=== PATIENT | female | born 1955 | race Caucasian/White ===

== ENCOUNTER 2016-09-15 23:53 | Emergency (ER) | payer BC ==
--- NOTE | 2016-09-16 00:19 | ER Document Report ---
ED General - General Chief Complaint: Arm Injury Stated Complaint: RIGHT ARM INJURY,RIGHT THIGH BURN Notes: Patient is a 61-year-old female presents with complaints of a fall. When she fell, she landed on her right elbow and now has deformity to right elbow. First degree burn on the right thigh. She has mild pain to right shoulder. She denies headache. She denies neck pain. She denies any other injuries. She has no other complaints at this time. TRAVEL OUTSIDE OF THE [place] IN LAST 30 DAYS: No - Related Data Allergies/Adverse Reactions: No Known Allergies Allergy (Unverified 11/21/11 15:55) Past Medical History - Social History Smoking Status: Never Smoker Frequency of alcohol use: None Drug Abuse: None Family History: Reviewed & Not Pertinent - Past Medical History Cardiac Medical History: Denies: Hx Coronary Artery Disease, Hx Heart Attack, Hx Hypertension, Hx Pulmonary Embolism Pulmonary Medical History: Reports: Hx Bronchitis, Hx COPD, Hx Pneumonia Denies: Hx Asthma, Hx Respiratory Failure, Hx Sleep Apnea, Hx Tuberculosis Neurological Medical History: Denies: Hx Cerebrovascular Accident, Hx Seizures Endocrine Medical History: Reports: Hx Hypothyroidism. Denies: Hx Graves' Disease, Hx Hyperthyroidism Malignancy Medical History: Denies: Hx Lung Cancer GI Medical History: Reports: Hx Gastroesophageal Reflux Disease. Denies: Hx Crohn's Disease, Hx Hiatal Hernia, Hx Irritable Bowel, Hx Liver Failure, Hx Ulcer Musculoskeltal Medical History: Reports Hx Arthritis - knees Past Surgical History: Reports: Hx Appendectomy. Denies: Hx Bowel Surgery, Hx Section, Hx Cholecystectomy, Hx Colostomy, Hx Coronary Artery Bypass Graft, Hx Gastric Bypass Surgery, Hx Herniorrhaphy, Hx Hysterectomy, Hx Mastectomy, Hx Pacemaker, Hx Tonsillectomy, Hx Tubal Ligation - Immunizations Hx Diphtheria, Pertussis, Tetanus Vaccination: No Hx Pneumococcal Vaccination: 11/21/11 Review of Systems - Review of Systems Notes: My Normal Review Basic REVIEW OF SYSTEMS: CONSTITUTIONAL : Denies fever, chills, or sweats. Denies recent illness. EENT: Denies eye, ear, throat, or mouth pain or symptoms. Denies nasal or sinus congestion. RESPIRATORY: Denies cough, cold, or chest congestion. Denies shortness of breath, difficulty breathing, or wheezing. GASTROINTESTINAL: Denies abdominal pain. Denies nausea, vomiting, or diarrhea. Denies constipation. Last BM: MUSCULOSKELETAL: Denies neck or back pain or joint pain or swelling. SKIN: Denies rash or skin lesions. NEUROLOGICAL: Denies altered mental status or loss of consciousness. Denies headache. Denies weakness or paralysis or loss of use of either side. Denies problems with gait or speech. Denies sensory or motor loss. ALL OTHER SYSTEMS REVIEWED AND NEGATIVE. Physical Exam - Vital signs Vitals: Temp Pulse Resp BP Pulse Ox 98.0 F 68 20 127/63 H 94 09/16/16 00:05 09/16/16 00:05 09/16/16 00:05 09/16/16 00:05 09/16/16 00:05 - Notes Notes: General Appearance: Well nourished, alert, cooperative, no acute distress, mild to moderate obvious discomfort. Vitals: reviewed, See vital signs table. Head: no swelling or tenderness to the head Eyes: PERRL, EOMI, Conjuctiva clear Mouth: No decreasd moisture Neck: Supple, no neck tenderness, No thyromegaly Lungs: No wheezing, No rales, No rhonci, No accessory muscle use, good air exchange bilaterally. Heart: Normal rate, Regular rythm, No murmur, no rub Abdomen: No abdominal pain palpation. Extremities: strength 5/5 in all extremities, good pulses in all extremities, office for which right elbow which clinically appears consistent with a elbow dislocation. X-rays pending. Mild pain to palpation of the right shoulder. Distal pulses intact. Patient is able to move all fingers without difficulty. Distal sensation intact in the right hand., no edema. Skin: First-degree burn over the right medial thigh. Burn is only to the medial thigh. Is not circumferential. Neuro: speech clear, oriented x 3, normal affect, responds appropriately to questions. Course - Vital Signs Vital signs: Temp Pulse Resp BP Pulse Ox 98.0 F 72 20 125/67 99 09/16/16 00:05 09/16/16 02:54 09/16/16 02:54 09/16/16 02:54 09/16/16 02:54 - Transfer of Care Notes: 09/16/16 05:29 I was able to sedate the patient without complications in order to perform the dislocation reduction of the elbow. Patient is a radial head fracture. I will place patient in the posterior arm splint. We did place her in a sling. She will follow-up with orthopedics. I encourage return to ER shows worsening pain , increased swelling, or feels unwell. I did talk to her about splint for cautions and talked about the signs went to loosen the Kristian wrap under splint. Patient agrees with plan and will be discharged home. Dictation of this chart was performed using voice recognition software; therefore, there may be some unintended grammatical errors. Procedures - Conscious Sedation Conscious sedation Consent obtained: Yes Indication: dislocation reduciton Prior complications: Procedural sedation Pt with a mild systemic disease.: P2. - ASA Classification. Airway Evaluation: Normal anatomy Mallampati Classification: Class 1 Used during procedure: Suction available, IV access obtained, Pulse ox on pt., media monitor on pt. Medications administered: Diprivan I personally performed/intraservice time: Sedation, Procedure, 30 min or less Complications: No Notes: Patient was given a total of 50mg of Propofol. - Immobilization Right Elbow Pre-Proc Neuro Vasc Exam: Normal Immobilizer type: Long arm posterior Performed by: PCT Post-Proc Neuro Vasc Exam: Normal - Joint Reduction/Fracture Care Right Elbow Consent obtained: Yes Conscious sedation: Yes Pre-procedure NV exam: Yes Fracture: Closed Manipulation comment: traction with flexion of elbow Post-procedure NV exam: Yes Post-reduction x-ray: Joint reduced Reduction attempts: 1 Complications: No Discharge - Discharge Clinical Impression: Elbow dislocation Qualifiers: Encounter type: initial encounter Laterality: right Qualified Code(s): S53.104A - Unspecified dislocation of right ulnohumeral joint, initial encounter Radial head fracture, closed Qualifiers: Encounter type: initial encounter Fracture alignment: displaced Laterality: right Qualified Code(s): S52.121A - Displaced fracture of head of right radius, initial encounter for closed fracture Condition: Good Disposition: HOME, SELF-CARE Instructions: Oral Narcotic Medication ([facility]) Additional Instructions: Splitn Precautions A splint has been placed. This will protect the area while healing begins. Your problem does NOT normally require a cast. It MUST, however, be held still! Keep the splint on ALL THE TIME until instructed to remove it by the doctor. As you begin to use the area, be careful. You shouldn't do anything which causes discomfort -- you may disturb the injury even with the splint in place. After the initial period of rest and elevation, if splint does not prevent pain when you move, come back. You may require placement of a different splint , or a cast. If there is unexpected severe pain, or numbness, discoloration, or swelling beyond the splint, you should return at once. If you feel that the splint has broken or become loose, come back. Please call the orthopedic office in the morning to make a close follow-up appointment. Phone number for the orthopedic office is under the name "Dr. Merrill" in your discharge paperwork. Please return to ER immediately if you're having worsening pain, numbness in your hand, or feel unwell. Please loosen the Kristian wrap on your splint if you feel that you're developing some numbness or tingling in your hand or arm. Prescriptions: Hydrocodone/Acetaminophen [Lincoln 5-325 mg Tablet] 1 tab PO Q4 PRN #20 tablet PRN Reason: For Breakthrough Pain Referrals: AMADOU ANTHONY MD [Primary Care Provider] - Follow up as needed KRISTIAN MERRILL MD [ACTIVE STAFF] - Follow up in 3-5 days
[2016-09-16] MEDS ORDERED: PROPOFOL INJ 200 MG/20 ML VIAL IV ONE (01:04)
[2016-09-16] MEDS ORDERED: NORMAL SALINE 1000 ML 1,000 ML IV ONE (01:05)
[2016-09-16] MEDS ORDERED: FENTANYL CITRATE INJ/PF 100 MCG/2 ML AMPUL IV ONE (01:09)
[2016-09-16] MEDS ORDERED: HYDROCODONE/ACETAMINOPHEN 5-325 MG 6 TAB/DSPK PO PRN (05:40)
[2016-09-16 05:50] VITALS: BP 112/75
== END 2016-09-16 05:51 | disposition home or self-care (01) ==
LOC: ER 23:53
PROC: 0RSLXZZ Reposition Right Elbow Joint, External Approach (ICD-10-PCS; principal; 2016-09-15)
DX: S53.104A Unspecified dislocation of right ulnohumeral joint, initial encounter (principal); S52.121A Displaced fracture of head of right radius, initial encounter for closed fracture; W01.198A Fall on same level from slipping, tripping and stumbling with subsequent striking against other object, initial encounter; Y92.009 Unspecified place in unspecified non-institutional (private) residence as the place of occurrence of the external cause; T24.111A Burn of first degree of right thigh, initial encounter; J44.9 Chronic obstructive pulmonary disease, unspecified; E03.9 Hypothyroidism, unspecified
CPT/HCPCS: 99284; 96360; 73070; 73030; 73200; 24600; J3010; J7030; J2704

== ENCOUNTER 2016-09-18 08:26 | Day surgery (SDC) | payer BC ==
[~2016-09-18 08:26] MED LIST: CEFAZOLIN 2 GM/D5W RTU 2 GM/50 ML RTUPB IV PRN
[2016-09-18 09:19] LABS: APPEARANCE,URINE SLIGHTLY-CLOUDY; BILIRUBIN,URINE NEGATIVE (NEGATIVE); GLUCOSE, URINE NEGATIVE (NEGATIVE); KETONES,URINE NEGATIVE (NEGATIVE); LEUKOCYTE ESTERASE,URINE SMALL (NEGATIVE); NITRITE,URINE NEGATIVE (NEGATIVE); PROTEIN,URINE NEGATIVE (NEGATIVE); URINE SPECIFIC GRAVITY 1.016; UROBILINOGEN,URINE NEGATIVE mg/dL (<2.0)
[2016-09-18 09:41] LABS: HEMATOCRIT 45.7 % (36.0-47.0); HEMOGLOBIN 15.1 g/dL (12.0-15.5); HGB HCT DIFFERENCE -0.4; MEAN CORPUSCULAR HEMOGLOBIN 30.7 pg (27.0-33.4); MEAN CORPUSCULAR VOLUME 93 fl (80-97); RED BLOOD COUNT 4.91 10^6/uL (3.72-5.28); RED CELL DISTRIBUTION WIDTH 14.4 % (11.5-14.0); WHITE BLOOD COUNT 10.8 10^3/uL (4.0-10.5)
[2016-09-18 10:08] LABS: ANION GAP 10 (5-19); BLOOD UREA NITROGEN 13 mg/dL (7-20); CALCIUM 9.4 mg/dL (8.4-10.2); CARBON DIOXIDE 27 mmol/L (22-30); CHLORIDE 103 mmol/L (98-107); CREATININE RESULT 0.87 mg/dL (0.52-1.25); GLUCOSE 91 mg/dL (75-110); POTASSIUM 4.2 mmol/L (3.6-5.0); SODIUM 140.1 mmol/L (137-145)
[2016-09-18] MEDS ORDERED: METOCLOPRAMIDE HCL INJ/PF 10 MG/2 ML SDV ONE (10:19)
[2016-09-18] MEDS ORDERED: DEXAMETHASONE SOD PHOSPHATE INJ 4 MG/1 ML VIAL ONE (10:19)
[2016-09-18] MEDS ORDERED: ONDANSETRON HCL INJ/PF 4 MG/2 ML SDV ONE (10:19)
[2016-09-18] MEDS ORDERED: LIDOCAINE 2% INJ-PF (20 MG/ML) 10 ML AMPUL ONE (10:19)
[2016-09-18] MEDS ORDERED: GLYCOPYRROLATE INJ 0.4 MG/2 ML VIAL ONE (10:19)
[2016-09-18] MEDS ORDERED: SUCCINYLCHOLINE CHLORIDE INJ 200 MG/10 ML VIAL ONE (10:19)
[2016-09-18] MEDS ORDERED: MIDAZOLAM 2 MG/2 ML INJ ONE (11:51)
[2016-09-18] MEDS ORDERED: FENTANYL CITRATE INJ/PF 250 MCG/5 ML AMPULE ONE (11:51)
[2016-09-18] MEDS ORDERED: PROPOFOL INJ 200 MG/20 ML VIAL IV ONE (11:52)
[2016-09-18] MEDS ORDERED: BUPIVACAINE HCL 0.25 % INJ/PF (2.5 MG/1 ML) 30 ML VIAL ONE (12:37)
--- NOTE | 2016-09-18 12:56 | EKG REPORT ---
SEVERITY:- BORDERLINE ECG - SINUS RHYTHM BORDERLINE T ABNORMALITIES, ANT-LAT LEADS : Confirmed by: Ammy Rodriguez MD 18-Sep-2016 12:55:08
[2016-09-18] MEDS ORDERED: EPHEDRINE SULFATE INJ 50 MG/1 ML AMPULE ONE (13:05)
[2016-09-18] MEDS ORDERED: ONDANSETRON HCL INJ/PF 4 MG/2 ML SDV IV PRN (13:17)
[2016-09-18] MEDS ORDERED: PROMETHAZINE HCL INJ 25 MG/1 ML VIAL IV PRN ×2 (13:17)
[2016-09-18] MEDS ORDERED: MEPERIDINE HCL/PF INJ 25 MG/1 ML DISP.SYRIN IV PRN (13:17)
[2016-09-18] MEDS ORDERED: OXYCODONE-ACETAMINOPHEN 5-325 MG TABLET PO PRN ×4 (13:17→15:39)
[2016-09-18] MEDS ORDERED: FENTANYL CITRATE INJ/PF 100 MCG/2 ML AMPUL IV PRN ×3 (13:17)
[2016-09-18] MEDS ORDERED: MORPHINE SULFATE 10 MG/ML INJ IV PRN (13:17)
[2016-09-18] MEDS ORDERED: DIPHENHYDRAMINE HCL 50 MG/ML VIAL IV PRN (13:17)
[2016-09-18] MEDS ORDERED: DEXMEDETOMIDINE INJ 80 MCG/20 ML VIAL IV ONE (14:25)
[2016-09-18] MEDS: FENTANYL CITRATE INJ/PF 100 MCG/2 ML AMPUL ONE ×2 (14:42→14:47)
--- NOTE | 2016-09-18 15:09 | PDOC DISCHARGE SUMMARY ---
Discharge Summary (SDC) - Discharge Final Diagnosis: ORIF of the right radial head fracture Date of Surgery: 09/18/16 Discharge Date: 09/18/16 Condition: Good Treatment or Instructions: Keep splint dry clean and intact. Sling to right upper extremity. Nonweightbearing right upper extremity. Follow-up in 2 weeks in the office. Prescriptions: Oxycodone HCl/Acetaminophen [Percocet 5-325 mg Tablet] 1 - 2 tab PO ASDIR PRN # 60 tablet PRN Reason:
[2016-09-18 16:40] VITALS: BP 137/71
--- NOTE | 2016-10-23 15:19 | Operative Report ---
Operative Report DATE OF SURGERY: 09/18/16 PREOPERATIVE DIAGNOSIS: Right radial head fracture status post elbow dislocation POSTOPERATIVE DIAGNOSIS: Same OPERATION: ORIF of right radial head fracture, closed treatment of elbow dislocation SURGEON: ADRIANE TOBIN ANESTHESIA: GA TISSUE REMOVED OR ALTERED: None COMPLICATIONS: None ESTIMATED BLOOD LOSS: 10 mL PROCEDURE: Patient received 2 g of Ancef in the preop holding area. The right upper extremity was marked has a correct site. Patient was brought to the operating room and successfully induced and intubated in the supine position. Once the tube was secured the splint was removed and right upper extremity was prepped and draped in a normal sterile surgical fashion. A sterile tourniquet was applied to the right upper arm. Esmarch was used to secondary to extremity and tourniquet was inflated at 250 mmHg. Standard lateral approach to the radiocapitellar joint was done. Skin knife was used to do the initial cut with then scissors were used to expose the fascial tissue over the common extensor. I was able to see the muscle fibers and split the muscle fibers exposing the lateral elbow joint. This was incised longitudinally as well. I was quickly able to expose the radiocapitellar joint and see the fractured radial head. Of note the arm was a pronation at this point to protect the PIN nerve. I was able to reduce the radial head fracture and placed 2 threaded guide pins. C- arm pictures was taken to confirm proper placement and length without involving the proximal radial ulnar joint. I measured and took 2 mm off psychic countersink my to have the screws. I was able to secure them manually and then take pictures confirming my reduction and fixation. I pronated and supinated the arm showing no clicking or clunking of the proximal radio ulnar joint. I did reduce the elbow one more time and then proceeded to close the capsule and muscle layer with 0 Vicryl. We approximated the 17th tissue with 2-0 Vicryl and used gregory for skin. Patient then was covered with Xeroform 4 x 4 dressing and then overwrapped with Sof-Rol. A 4 inch Ortho-Glass was used and 2 splint the upper extremity in a pronated position. C-arm pictures were taking showing reduced the elbow after splint had hardened. At this point the drapes were cut and removed and the tourniquet was deflated and the patient successfully extubated and transferred to PACU in stable condition.
== END 2016-09-18 17:05 | disposition home or self-care (01) ==
LOC: OROUT 08:26
PROVIDERS: ATTEND Orthopaedic Surgery
PROC: 0RSLXZZ Reposition Right Elbow Joint, External Approach (ICD-10-PCS; 2016-09-18)
PROC: 0PSH04Z Reposition Right Radius with Internal Fixation Device, Open Approach (ICD-10-PCS; principal; 2016-09-18 12:30)
DX: S52.121A Displaced fracture of head of right radius, initial encounter for closed fracture (principal); S53.104A Unspecified dislocation of right ulnohumeral joint, initial encounter; X58.XXXA Exposure to other specified factors, initial encounter; F17.210 Nicotine dependence, cigarettes, uncomplicated; E03.9 Hypothyroidism, unspecified; E66.3 Overweight; Z79.899 Other long term (current) drug therapy; Z68.36 Body mass index [BMI] 36.0-36.9, adult
CPT/HCPCS: 36415; 85027; 80048; 81001; 71010; 73070; 93005; 93010; 24665; 24605; J2250; J1100; J3490 ×3; J3010 ×2; J2765; J0330; J2405; J2704; J0690; 01740

== ENCOUNTER → 2018-11-19 | Outpatient (CLI) | payer BC ==
--- NOTE | 2018-11-23 08:42 | WOMENS IMAGING REPORT ---
EXAM DESCRIPTION: 3D SCREENING MAMMO BILAT COMPLETED DATE/TIME: 11/19/2018 3:44 pm REASON FOR STUDY: Z12.31 SCREENING MAMMO Z12.31 ENCNTR SCREEN MAMMOGRAM FOR MALIGNANT NEOPLASM OF B RE COMPARISON: 07/16/2016 and 05/10/2015. TECHNIQUE: Standard craniocaudal and mediolateral oblique views of each breast recorded using digita l acquisition and breast tomosynthesis. LIMITATIONS: None. FINDINGS: No masses, calcifications or architectural distortion. No areas of suspicion. Read with the assistance of CAD. .[facility] - R2 Cenova Version 1.3 .[facility] Imaging - R2 Cenova Version 2.1 .[facility] - R2 Cenova Version 2.4 .[facility] [place] R2 Cenova Version 2.4 .[facility] - R2 [employer] Version 9.2 IMPRESSION: NORMAL MAMMOGRAM. BIRADS 1. BREAST DENSITY: b. There are scattered areas of fibroglandular density. BIRAD: 1 NEGATIVE RECOMMENDATION: ROUTINE SCREENING COMMENT: The patient has been notified of the results by letter per SA requirements. Additional no tification policies are in place for contacting patient with suspicious or incomplete findings. Quality ID #225: The [employer] recommends an annual screening mammogram for women aged 40 years or over. This facility utilizes a reminder system to ensure that all patients receive reminder letters, and/or direct phone calls for appointments. This includes reminders for routine scr eening mammograms, diagnostic mammograms, or other Breast Imaging Interventions when appropriate. Th is patient will be placed in the appropriate reminder system. The [employer] (ACR) has developed recommendations for screening MRI of the breast s in certain patient populations, to be used in conjunction with mammography. Breast MRI surveillanc e may be appropriate for women with more than 20% lifetime risk of developing breast cancer as deter mined by genetic testing, significant family history of the disease, or history of mantle radiation f or Hodgkins Disease. ACR Practice Guidelines 2008. DBT Technology DBT is a type of tomographic mammography. With conventional mammography, overlapping breast tissue ma y make lesions difficult to detect, even with good compression. DBT uses an x-ray tube that rotates a round the breast, taking images at different angles. These images are then combined to create thin sl ices of the breast that the radiologist can view as a 3D reconstruction. The [employer] unit can perform full-field digital mammograms (2D imaging); or DBT (3D imaging); or both, in a combination mode that quickly performs both the mammogram and the tomosynthesis scan while the breast is still compressed. PQRS 6045F: Fluoroscopic imaging is not utilized for breast tomosynthesis. TECHNICAL DOCUMENTATION: FINDING NUMBER: (1) ASSESSMENT: (1) JOB ID: [id number] [employer]- All Rights Reserved Reading location - IP/workstation name: [email or web address]
== END ==
LOC: WI 15:15
PROVIDERS: ATTEND Internal Medicine
DX: Z12.31 Encounter for screening mammogram for malignant neoplasm of breast (principal)
CPT/HCPCS: 77063; 77067

== ENCOUNTER → 2019-07-12 | Outpatient (CLI) | payer BC ==
--- NOTE | 2019-07-12 17:07 | RADIOLOGY REPORT (SQ) ---
EXAM DESCRIPTION: CT ABD/PELVIS WITH IV ONLY COMPLETED DATE/TIME: 07/12/2019 2:12 pm REASON FOR STUDY: HEMATURIA (R31.9) R31.9 HEMATURIA, UNSPECIFIED COMPARISON: None. TECHNIQUE: CT scan of the abdomen and pelvis performed using helical scanning technique with dynamic intravenous contrast injection. No oral contrast. Images reviewed with lung, soft tissue, and bone windows. Reconstructed coronal and sagittal MPR images reviewed. Delayed images for evaluation of the urinary system also acquired. All images stored on PACS. All CT scanners at this facility use dose modulation, iterative reconstruction, and/or weight based d osing when appropriate to reduce radiation dose to as low as reasonably achievable (ALARA). [facility]: Dose Right [facility]: CareDose [facility]: Dose Right [facility]: Teradose 4D [facility]: [employer] CONTRAST TYPE AND DOSE: contrast/concentration: Isovue 350.00 mg/ml; Total Contrast Delivered: 100.0 ml; Total Saline Delivered: 72.0 ml RENAL FUNCTION: Creatinine 1.0 RADIATION DOSE: CT Rad equipment meets quality standard of care and radiation dose reduction techniq ues were employed. CTDIvol: 27.0 - 30.9 mGy. DLP: 3309 mGy-cm.. LIMITATIONS: None. FINDINGS: LOWER CHEST: No significant findings. No nodules or infiltrates. LIVER: Normal size. No masses. No dilated ducts. SPLEEN: Normal size. No focal lesions. PANCREAS: No masses. No significant calcifications. No adjacent inflammation or peripancreatic fluid collections. Pancreatic duct not dilated. GALLBLADDER: Surgically absent. ADRENAL GLANDS: No significant masses or asymmetry. RIGHT KIDNEY AND URETER: No solid masses. No significant calcifications. No hydronephrosis or hyd roureter. LEFT KIDNEY AND URETER: No solid masses. There is a exophytic upper pole cyst measuring 5.7 cm. Add itional subcentimeter hypodense lesion, likely cyst but difficult to characterize. No significant c alcifications. No hydronephrosis or hydroureter. AORTA AND VESSELS: No aneurysm. No dissection. Renal arteries, SMA, celiac without stenosis. RETROPERITONEUM: No retroperitoneal adenopathy, hemorrhage or masses. BOWEL AND PERITONEAL CAVITY: No masses or inflammatory changes. No free fluid or peritoneal masses. APPENDIX: Not visualized. PELVIS: Decompressed urinary bladder. There is a irregular partially calcified lesion extending off the posterior left paramedian bladder wall measuring approximately 4.0 x 3.1 cm (series 2, image 74). No pelvic free fluid. No discrete adenopathy. ABDOMINAL WALL: Right anterior abdominal wall hernia containing fat and a portion of the liver. No d iscrete mass. BONES: No acute bony abnormality. Sclerotic focus within the right sacrum, likely bone island. No a dditional lytic or blastic osseous lesions. Lower lumbar facet arthropathy. OTHER: No other significant finding. IMPRESSION: 1. Irregular mass extending off the posterior left bladder wall measuring approximately 4.0 x 3.1 cm, highly suspicious for neoplasm. Recommend urologic consultation. No definitive evide nce of distant metastatic disease. 2. No other evidence of acute intra-abdominal/pelvic process. Chronic findings as above. TECHNICAL DOCUMENTATION: JOB ID: [id number] Quality ID # [id number]: Final reports with documentation of one or more dose reduction techniques (e.g., Au tomated exposure control, adjustment of the mA and/or kV according to patient size, use of iterative reconstruction technique) 2010 [employer]- All Rights Reserved Reading location - IP/workstation name: [email or web address]
== END ==
LOC: RAD 13:36
PROVIDERS: ATTEND Internal Medicine
DX: R31.9 Hematuria, unspecified (principal)
CPT/HCPCS: 74177; 82565

== ENCOUNTER → 2019-10-25 | Outpatient (CLI) | payer BC ==
--- NOTE | 2019-10-25 14:26 | RADIOLOGY REPORT (SQ) ---
EXAM DESCRIPTION: CT ABD/PELVIS WITH IV ONLY COMPLETED DATE/TIME: 10/25/2019 1:37 pm REASON FOR STUDY: C67.9 MALIGNANT NEOPLASM OF BLADDER, UNSPECIFIED C67.9 MALIGNANT NEOPLASM OF BLAD MARLENY, UNSPECIFIED COMPARISON: 07/12/2019 TECHNIQUE: CT scan of the abdomen and pelvis performed using helical scanning technique with dynamic intravenous contrast injection. No oral contrast. Images reviewed with lung, soft tissue, and bone windows. Reconstructed coronal and sagittal MPR images reviewed. Delayed images for evaluation of the urinary system also acquired. All images stored on PACS. All CT scanners at this facility use dose modulation, iterative reconstruction, and/or weight based d osing when appropriate to reduce radiation dose to as low as reasonably achievable (ALARA). [facility]: Dose Right [facility]: CareDose [facility]: Dose Right [facility]: Teradose 4D [facility]: [employer] CONTRAST TYPE AND DOSE: contrast/concentration: Isovue 350.00 mg/ml; Total Contrast Delivered: 100.0 ml; Total Saline Delivered: 72.0 ml RENAL FUNCTION: BUN 17 creatinine 0.9 RADIATION DOSE: CT Rad equipment meets quality standard of care and radiation dose reduction techniq ues were employed. CTDIvol: 23.2 - 23.3 mGy. DLP: 2377 mGy-cm.. LIMITATIONS: None. FINDINGS: LOWER CHEST: No significant findings. No nodules or infiltrates. LIVER: Normal size. No masses. No dilated ducts. SPLEEN: Normal size. No focal lesions. PANCREAS: No masses. No significant calcifications. No adjacent inflammation or peripancreatic fluid collections. Pancreatic duct not dilated. GALLBLADDER: Surgically absent. ADRENAL GLANDS: No significant masses or asymmetry. RIGHT KIDNEY AND URETER: No solid masses. No significant calcifications. No hydronephrosis or hyd roureter. LEFT KIDNEY AND URETER: No solid masses. There is a prominent cyst arising from the dorsal aspect of the left kidney. No significant calcifications. No hydronephrosis or hydroureter. AORTA AND VESSELS: No aneurysm. No dissection. Renal arteries, SMA, celiac without stenosis. RETROPERITONEUM: No retroperitoneal adenopathy, hemorrhage or masses. BOWEL AND PERITONEAL CAVITY: No masses or inflammatory changes. No free fluid or peritoneal masses. APPENDIX: Surgically absent. PELVIS: There is some residual thickening in the bladder wall. No pelvic mass or fluid collection. There may be some surgical suture present. By history there has been bladder surgery. ABDOMINAL WALL: No masses. No hernias. BONES: No significant or acute findings. OTHER: No other significant finding. IMPRESSION: Surgical changes in the bladder. No acute or significant finding in the abdomen or pelv is. There is no evidence of metastatic disease. TECHNICAL DOCUMENTATION: JOB ID: [id number] Quality ID # [id number]: Final reports with documentation of one or more dose reduction techniques (e.g., Au tomated exposure control, adjustment of the mA and/or kV according to patient size, use of iterative reconstruction technique) 2010 [employer]- All Rights Reserved Reading location - IP/workstation name: [email or web address]
== END ==
LOC: RAD 13:00
PROVIDERS: ATTEND Urology
DX: C67.9 Malignant neoplasm of bladder, unspecified (principal); R31.0 Gross hematuria
CPT/HCPCS: 74177

== ENCOUNTER → 2019-12-19 | Outpatient (CLI) | payer BC ==
--- NOTE | 2019-12-19 15:19 | RADIOLOGY REPORT (SQ) ---
EXAM DESCRIPTION: VENOUS UNILATERAL LOWER IMAGES COMPLETED DATE/TIME: 12/19/2019 2:58 pm REASON FOR STUDY: LLE SWELLING R22.42 LOCALIZED SWELLING, MASS AND LUMP, LEFT LOWER LIMB COMPARISON: None. TECHNIQUE: Dynamic and static everett scale and color images acquired of the left leg venous system. Se lected spectral images acquired with additional compression and augmentation maneuvers. The contralat eral common femoral vein and saphenofemoral junction were also imaged. Images stored on PACS. LIMITATIONS: None. FINDINGS: COMMON FEMORAL: Normal phasicity, compression and augmentation. No visualized echogenic ma terial on everett scale. No defects on color images. FEMORAL: Normal compression and augmentation. No visualized echogenic material on everett scale. No defe cts on color images. POPLITEAL: Normal compression, augmentation. No visualized echogenic material on everett scale. No defec ts on color images. CALF VESSELS: Normal compression, augmentation. No visualized echogenic material on everett scale. No de fects on color images. GSV and SSV: Normal compression, augmentation. No visualized echogenic material on everett scale. No def ects on color images. ANY DEEP VENOUS INSUFFICIENCY: No. ANY EVIDENCE OF POPLITEAL CYST: No. OTHER: No other finding. CONTRALATERAL COMMON FEMORAL VEIN AND SAPHENOFEMORAL JUNCTION: Normal phasicity, compression and augmentation. No visualized echogenic material on everett scale. No de fects on color images. IMPRESSION: NO EVIDENCE OF DVT OR SVT IN THE LEFT LEG. TECHNICAL DOCUMENTATION: JOB ID: [id number] 2010 [employer]- All Rights Reserved Reading location - IP/workstation name: [email or web address]
== END ==
LOC: SP 13:24
PROVIDERS: ATTEND Internal Medicine
DX: R22.42 Localized swelling, mass and lump, left lower limb (principal)
CPT/HCPCS: 93971

== ENCOUNTER → 2020-02-10 | Outpatient (CLI) | payer BC ==
--- NOTE | 2020-02-10 13:54 | RADIOLOGY REPORT (SQ) ---
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 TECHNIQUE: Sagittal and Axial imaging includes T1, T1 post gadolinium, T2, STIR and gradient echo se quences. Coronal T2/HASTE imaging. CONTRAST TYPE AND DOSE: 20 mL Prohance. RENAL FUNCTION: Not indicated. ACR Type II contrast agent associated with few, if any, unconfounded cases of NSF LIMITATIONS: None. FINDINGS: VISUALIZED UPPER ABDOMEN: Limited evaluation. No acute or suspicious findings suggested. SEGMENTATION: The last well-defined disc space is designated S1-S2. Segment numbering is performed t o match the prior from 2007. ALIGNMENT: Anatomic. VERTEBRAE: Intact. No fractures. BONE MARROW: Normal. No marrow replacement or reactive changes. DISC SIGNAL: Normal. No significant abnormal signal or loss of height. POSTERIOR ELEMENTS: Variable facet arthropathy with slight overgrowth particularly in the lower segm ents. No pars defect. HARDWARE: None in the spine. CORD AND CONUS: Normal in size and signal intensity. Conus at the appropriate level. SOFT TISSUES: No aortic aneurysm seen. No bulky retroperitoneal adenopathy or mass. No paraspinal mas s or fluid. L1-L2: No significant spinal stenosis or exit foraminal stenosis. L2-L3: No significant spinal stenosis or exit foraminal stenosis. L3-L4: No significant spinal stenosis or exit foraminal stenosis. L4-L5: No significant spinal stenosis or exit foraminal stenosis. L5-S1: Mild bilateral foraminal narrowing. LOWER THORACIC: Incompletely imaged. No stenosis seen. SACRUM: Visualized upper sacrum intact. ENHANCEMENT: No abnormal enhancement. OTHER: No other significant findings. IMPRESSION: 1. Chronic mild spondylosis but no evidence of nerve root impingement or significant spinal stenosis. Similar appearance compared to prior. No enhancing lesions. TECHNICAL DOCUMENTATION: JOB ID: [id number] 2010 [employer] All Rights Reserved Reading location - IP/workstation name: [email or web address]
== END ==
LOC: RAD 08:59
PROVIDERS: ATTEND Nurse Practitioner Family
DX: C67.9 Malignant neoplasm of bladder, unspecified (principal); M47.817 Spondylosis without myelopathy or radiculopathy, lumbosacral region
CPT/HCPCS: 82565; 72158; A9576

== ENCOUNTER → 2020-02-23 | Outpatient (CLI) | payer BC ==
--- NOTE | 2020-02-24 08:53 | RADIOLOGY REPORT (SQ) ---
EXAM DESCRIPTION: CT CHEST WITH; CT ABD/PELVIS WITH IV ONLY IMAGES COMPLETED DATE/TIME: 02/23/2020 3:33 pm REASON FOR STUDY: C67.9 MALIGNANT NEOPLASM OF BLADDER, UNSPECIFIED C67.9 MALIGNANT NEOPLASM OF BLAD MARLENY, UNSPECIFIED COMPARISON: CT abdomen pelvis 07/12/2019, 10/25/2019 CONTRAST TYPE AND DOSE: contrast/concentration: Isovue 350.00 mmol/ml; Total Contrast Delivered: 100 .0 ml; Total Saline Delivered: 61.0 ml RENAL FUNCTION: GFR > 60. TECHNIQUE: CT scan of the chest performed using helical scanning technique with dynamic intravenous contrast injection. Images reviewed with lung, soft tissue and bone windows. Reconstructed coronal a nd sagittal MPR images reviewed. All images stored on PACS. CT scan of the abdomen and pelvis performed with intravenous and without oral contrastusing helical s moni technique with dynamic intravenous contrast injection. Images reviewed with lung, soft tissu e and bone windows. Reconstructed coronal and sagittal MPR images reviewed. Delayed images for eval uation of the urinary system also acquired and evaluated. All images stored on PACS. All CT scanners at this facility use dose modulation, iterative reconstruction, and/or weight based d osing when appropriate to reduce radiation dose to as low as reasonably achievable (ALARA). [facility]: Dose Right [facility]: CareDose [facility]: Dose Right [facility]: Teradose 4D [facility]: [email or web address] RADIATION DOSE: CT Rad equipment meets quality standard of care and radiation dose reduction techniq ues were employed. CTDIvol: 21.3 - 26.7 mGy. DLP: 3506 mGy-cm. . LIMITATIONS: None. FINDINGS: CHEST: LUNGS AND PLEURA: No opacities, nodules, masses. No pneumothorax. No effusions. HILAR AND MEDIASTINAL STRUCTURES: No identified masses or abnormal nodes. HEART AND VASCULAR STRUCTURES: No aneurysm or dissection. No central pulmonary emboli. No pericardi al effusion. HARDWARE: None. THYROID AND OTHER SOFT TISSUES: No masses. No adenopathy. BONES: No significant finding. OTHER: No other significant finding. ABDOMEN AND PELVIS: LIVER: Normal size. No masses. No dilated ducts. SPLEEN: Normal size. No focal lesions. PANCREAS: No masses. No significant calcifications. No adjacent inflammation or peripancreatic fluid collections. Pancreatic duct not dilated. GALLBLADDER: Surgically absent ADRENAL GLANDS: No significant masses or asymmetry. RIGHT KIDNEY AND URETER: No solid masses. 1 cm right midpole parapelvic cyst. No significant calcif ication. No hydronephrosis or hydroureter. LEFT KIDNEY AND URETER: In the anterior left mid pole kidney, a 2 cm hemorrhagic cyst versus mass is present measuring about 70 Hounsfield units. Dedicated renal ultrasound is recommended to characteri ze this finding as cystic or solid. 6.5 cm left lower pole, multiple subcentimeter lower pole renal cortical cysts. No significant calci fication. No hydronephrosis or hydroureter. AORTA AND VESSELS: No aneurysm. No dissection. Renal arteries, SMA, celiac without stenosis. RETROPERITONEUM: No retroperitoneal adenopathy, hemorrhage or masses. BOWEL AND PERITONEAL CAVITY: No masses or inflammatory changes. No free fluid or peritoneal masses. APPENDIX: Surgically absent ABDOMINAL WALL: No masses. No hernias. PELVIS: Abnormal thickening of the left bladder trigone and left lateral bladder wall, up to 15 mm in thickness. The discrete 2.8 cm bladder mass seen on CT exam 07/12/2019 is no longer identified BONES: No significant or acute findings. OTHER: No other significant finding. IMPRESSION: No CT evidence of metastatic bladder tumor to the chest Treatment response, with decrease bladder mass protruding into the bladder lumen, stable left bladder wall thickening. Indeterminate 2 cm lesion midpole left kidney for which dedicated renal ultrasound is recommended TECHNICAL DOCUMENTATION: JOB ID: [id number] Quality ID # 436: Final reports with documentation of one or more dose reduction techniques (e.g., Au tomated exposure control, adjustment of the mA and/or kV according to patient size, use of iterative reconstruction technique) 2010 [employer]- All Rights Reserved Reading location - IP/workstation name: [email or web address]
== END ==
LOC: RAD 15:00
PROVIDERS: ATTEND Internal Medicine Hematology & Oncology
DX: C67.9 Malignant neoplasm of bladder, unspecified (principal); N28.1 Cyst of kidney, acquired; N28.89 Other specified disorders of kidney and ureter
CPT/HCPCS: 71260; 74177

== ENCOUNTER → 2020-04-17 | Outpatient (CLI) | payer BC ==
--- NOTE | 2020-04-17 15:49 | RADIOLOGY REPORT (SQ) ---
EXAM DESCRIPTION: U/S RETROPERITON (RENAL/AORTA) IMAGES COMPLETED DATE/TIME: 04/17/2020 3:07 pm REASON FOR STUDY: C67.9 MALIGNANT NEOPLASM OF BLADDER, UNSPECIFIED C67.9 MALIGNANT NEOPLASM OF BLAD MARLENY, UNSPECIFIED COMPARISON: CT dated 02/23/2020. TECHNIQUE: Dynamic and static grayscale images acquired of the kidneys and bladder and recorded on P ACS. Additional selected color Doppler and spectral images recorded. LIMITATIONS: Limited visualization due to the patient's body habitus and overlying bowel gas. FINDINGS: RIGHT KIDNEY: Normal size. Normal echogenicity. 1.6 cm hypoechoic lesion in the mid k idney. No hydronephrosis. No calcifications. LEFT KIDNEY: Normal size. Normal echogenicity. 6.2 cm cyst in the lower pole. 2.2 cm hypoechoic lesion the mid kidney. No hydronephrosis. No calcifications. BLADDER: Poorly distended. Irregular bladder wall thickening. OTHER FINDINGS: No other significant finding. IMPRESSION: LIMITED STUDY DUE TO THE PATIENT'S BODY HABITUS AND OVERLYING BOWEL GAS. HYPOECHOIC LES IONS IN BOTH KIDNEYS DESCRIBED COULD BE CYSTS. CANNOT EXCLUDE SOLID LESION. IF THERE IS CLINICAL CONCERN, MAY CONSIDER MRI OF THE KIDNEYS. TECHNICAL DOCUMENTATION: JOB ID: [id number] 2010 [employer]- All Rights Reserved Reading location - IP/workstation name: [email or web address]
== END ==
LOC: RAD 14:19
PROVIDERS: ATTEND Internal Medicine Hematology & Oncology
DX: C67.9 Malignant neoplasm of bladder, unspecified (principal); N28.9 Disorder of kidney and ureter, unspecified
CPT/HCPCS: 76770

== ENCOUNTER → 2020-05-30 | Outpatient (CLI) | payer BC ==
--- NOTE | 2020-05-30 16:21 | WOMENS IMAGING REPORT ---
EXAM DESCRIPTION: 3D SCREENING MAMMO BILAT IMAGES COMPLETED DATE/TIME: 05/30/2020 3:03 pm REASON FOR STUDY: Z12.31 ENCNTR SCREEN MAMMOGRAM FOR MALIGNANT NEOPLASM OF BREAST Z12.31 ENCNTR SCR EEN MAMMOGRAM FOR MALIGNANT NEOPLASM OF AJITH COMPARISON: 2015 to 2018 EXAM PARAMETERS: Standard craniocaudal and mediolateral oblique views of each breast recorded using digital acquisition and breast tomosynthesis. Read with the assistance of CAD. .[facility] - R2 General Neurologist Version 9.2 LIMITATIONS: None. FINDINGS: RIGHT BREAST MASSES: No suspicious masses. CALCIFICATIONS: No new or suspicious calcifications. ARCHITECTURAL DISTORTION: None. ASYMMETRY: None noted. OTHER: No other significant findings. LEFT BREAST MASSES: No suspicious masses. CALCIFICATIONS: No new or suspicious calcifications. ARCHITECTURAL DISTORTION: None. ASYMMETRY: Asymmetry in the central breast CC view only 5 cm from the nipple OTHER: No other significant findings. IMPRESSION: Asymmetry left breast 0 Incomplete: Needs Additional Imaging Evaluation and/or prior Mammograms for Comparison. BREAST DENSITY: a. The breasts are almost entirely fatty. BIRAD: ASSESSMENT: 0 Incomplete: Needs Additional Imaging Evaluation and/or prior Mammograms for C omparison. RECOMMENDATION: RECOMMENDED FOLLOW-UP: Spot compression with ultrasound if indicated The patient will be contacted for additional imaging. COMMENT: The patient has been notified of the results by letter per MQSA requirements. Additional no tification policies are in place for contacting patient with suspicious or incomplete findings. Quality ID #225: The [employer] recommends an annual screening mammogram for women aged 40 years or over. This facility utilizes a reminder system to ensure that all patients receive reminder letters, and/or direct phone calls for appointments. This includes reminders for routine scr eening mammograms, diagnostic mammograms, or other Breast Imaging Interventions when appropriate. Th is patient will be placed in the appropriate reminder system. TECHNICAL DOCUMENTATION: FINDING NUMBER: (1) ASSESSMENT: (1) JOB ID: [id number] 2010 [employer]- All Rights Reserved Reading location - IP/workstation name: [email or web address]
== END ==
LOC: WI 14:38
PROVIDERS: ATTEND Internal Medicine
DX: Z12.31 Encounter for screening mammogram for malignant neoplasm of breast (principal); N64.89 Other specified disorders of breast
CPT/HCPCS: 77063; 77067

== ENCOUNTER → 2020-08-29 | Outpatient (CLI) | payer BC ==
--- NOTE | 2020-08-29 16:06 | RADIOLOGY REPORT (SQ) ---
EXAM DESCRIPTION: CT ABD/PELVIS WITH IV ONLY IMAGES COMPLETED DATE/TIME: 08/29/2020 3:42 pm REASON FOR STUDY: BLADDER CANCER C67.9 MALIGNANT NEOPLASM OF BLADDER, UNSPECIFIED COMPARISON: 02/23/2020 TECHNIQUE: CT scan of the abdomen and pelvis performed using helical scanning technique with dynamic intravenous contrast injection. No oral contrast. Images reviewed with lung, soft tissue, and bone windows. Reconstructed coronal and sagittal MPR images reviewed. Delayed images for evaluation of the urinary system also acquired. All images stored on PACS. All CT scanners at this facility use dose modulation, iterative reconstruction, and/or weight based d osing when appropriate to reduce radiation dose to as low as reasonably achievable (ALARA). [facility]: Dose Right [facility]: CareDose [facility]: Dose Right [facility]: Teradose 4D [facility]: [address] CONTRAST TYPE AND DOSE: contrast/concentration: Isovue 350.00 mmol/ml; Total Contrast Delivered: 100 .0 ml; Total Saline Delivered: 72.0 ml RENAL FUNCTION: Creatinine 1.1 RADIATION DOSE: CT Rad equipment meets quality standard of care and radiation dose reduction techniq ues were employed. CTDIvol: 18.9 - 21.9 mGy. DLP: 1984 mGy-cm.. LIMITATIONS: None. FINDINGS: LOWER CHEST: No significant findings. No nodules or infiltrates. LIVER: Hepatic steatosis. Normal size. No masses. No intrahepatic biliary dilatation. SPLEEN: Normal size. Subcapsular hypoattenuating foci are unchanged in the study interval. PANCREAS: No masses. No significant calcifications. No adjacent inflammation or peripancreatic fluid collections. Pancreatic duct not dilated. GALLBLADDER: Surgically absent. ADRENAL GLANDS: No significant masses or asymmetry. RIGHT KIDNEY AND URETER: No solid masses. No significant calcifications. No hydronephrosis or hyd roureter. LEFT KIDNEY AND URETER: Re- demonstration of a 2.2 cm homogeneously hypoattenuating structure demonst rating indeterminate Hounsfield unit. Incidental note is again made of a 6.8 cm exophytic simple cys t. Additional subcentimeter hypoattenuating foci likely represent tiny renal cysts. No significant calcifications. No hydronephrosis or hydroureter. AORTA AND VESSELS: No aneurysm. No dissection. Renal arteries, SMA, celiac without stenosis. Inciden jahaira note is made of a retroaortic left renal vein. RETROPERITONEUM: No retroperitoneal adenopathy, hemorrhage or masses. BOWEL AND PERITONEAL CAVITY: No masses or inflammatory changes. No free fluid or peritoneal masses. APPENDIX: Surgically absent. PELVIS: No mass. No free fluid. Re- demonstration asymmetric mural thickening of the bladder. ABDOMINAL WALL: No masses. No hernias. BONES: No significant or acute findings. OTHER: No other significant finding. IMPRESSION: 1. No evidence of metastatic disease. Stable CT appearance of the abdomen and pelvis. 2. Stable appearance of an indeterminate lesion involving the left kidney. Recommend dedicated mango l MRI or CT for definitive characterization. TECHNICAL DOCUMENTATION: JOB ID: [id number] Quality ID # 436: Final reports with documentation of one or more dose reduction techniques (e.g., Au tomated exposure control, adjustment of the mA and/or kV according to patient size, use of iterative reconstruction technique) 2010 [employer]- All Rights Reserved Reading location - IP/workstation name: [email or web address]
--- NOTE | 2020-08-29 17:04 | RADIOLOGY REPORT (SQ) ---
EXAM DESCRIPTION: CHEST 2 VIEWS IMAGES COMPLETED DATE/TIME: 08/29/2020 3:48 pm REASON FOR STUDY: SURVELLANCE FOR BLADDER CA COMPARISON: 09/18/2016 EXAM PARAMETERS: NUMBER OF VIEWS: two views TECHNIQUE: Digital Frontal and Lateral radiographic views of the chest acquired. RADIATION DOSE: NA LIMITATIONS: none FINDINGS: LUNGS AND PLEURA: No opacities, masses or pneumothorax. No pleural effusion. MEDIASTINUM AND HILAR STRUCTURES: No masses or contour abnormalities. HEART AND VASCULAR STRUCTURES: Heart normal size. No evidence for failure. BONES: No acute findings. HARDWARE: Port-A-Cath terminates in the region of the cavoatrial junction. OTHER: No other significant finding. IMPRESSION: No evidence of acute cardiopulmonary abnormality. TECHNICAL DOCUMENTATION: JOB ID: [id number] 2010 [employer]- All Rights Reserved Reading location - IP/workstation name: [email or web address]
== END ==
LOC: RAD 15:00
PROVIDERS: ATTEND Nurse Practitioner Family
DX: C67.9 Malignant neoplasm of bladder, unspecified (principal); N28.9 Disorder of kidney and ureter, unspecified
CPT/HCPCS: 71046; 74177; 82565